=== PATIENT | female | born 1990 | race Two or more races ===

== ENCOUNTER 2021-05-03 12:41 | Emergency (ER) | payer OTHER ==
[~2021-05-03] VITALS: Ht 170.2 cm; Wt 68.9 kg
[2021-05-03] MEDS ORDERED: NORFLEX100MG PO (16:02)
[2021-05-03] MEDS ORDERED: KETO10TA2 PO (16:02)
== END 2021-05-03 16:09 | disposition home or self-care (01) ==
LOC: ER 12:41 → EDBD 12:56 → ER 12:56
DX: M54.50 Low back pain, unspecified (principal)